=== PATIENT | female | born 1980 | race Caucasian/White ===

== ENCOUNTER → 2018-02-21 | Outpatient (CLI) | payer OTHER ==
--- NOTE | 2018-02-21 17:18 | KCIC ---
MRI of the cervical spine without contrast 02/21/2018 CLINICAL HISTORY: Neck pain and stiffness. TECHNIQUE: Unenhanced T1-weighted, T2-weighted and inversion recovery sagittal and gradient echo and T2-weighted axial images of the cervical spine were obtained. FINDINGS: Minimal lateral curvature of the cervical spine is seen convex to the right. There is straightening of the normal cervical lordosis. The morphology and signal characteristics of all the disks of the cervical spine are within normal limits. The marrow signal of the visualized bony structures is within normal limits. The cervical spinal cord is normal morphology, position, and signal characteristics. Moderate mucosal thickening is seen involving the visualized portions of the sphenoid sinus. On the axial images throughout the cervical disc spaces very mild degenerative changes are seen consisting of minimal to mild generalized disc bulges and mild degenerative changes involving the uncovertebral and facet joints. These findings do not result in significant central spinal canal or neural foraminal stenosis at any level. IMPRESSION: Very mild degenerative changes are seen involving the cervical spine as outlined above. These findings do not result in significant central spinal canal or neural foraminal stenosis at any level. Electronically signed by: Alexander Corey MD (02/21/2018 5:15 PM) [id number]
== END | disposition home or self-care (01) ==
LOC: KCIC MRI 16:06
PROVIDERS: ATTEND Physician Assistant Medical
DX: M50.30 Other cervical disc degeneration, unspecified cervical region (principal)
CPT/HCPCS: 72141